=== PATIENT | female | born 1975 | race Caucasian/White ===

== ENCOUNTER 2019-07-26 22:48 | Emergency (ER) | payer SELFPAY ==
[~2019-07-26] VITALS: Ht 165.1 cm; Wt 86.2 kg
--- NOTE | 2019-07-26 22:55 | NUR ---
PT RECEIVED AMBULATORY FRM HOME, C/O L UNDER ARM PAIN AND ABCESS FOR 2WEEKS. HAS TRIED EPSOM SALT SOAK TO THE SITE FROM 5CM DOWN TO 3CM. PT NAD, DENIES FEVERS AND CHILLS, AT BEDSIDE FOR HX AND PHYSICAL
[2019-07-26] MEDS ORDERED: HYDROCODONE/APAP 10-325 MG TABLET PO ONE (23:15)
--- NOTE | 2019-07-26 23:20 | NUR ---
PT ON SUPINE, DRAPED AND PREPPED I&D OF ABSCESS ON L UNDERARM DONE BY JUANY ROGERS, 1%LIDOCAINE USED FOR NUMBING SITE, WITH ASEPSIS AND STERILE TECHNIQUE ABLE TO DRAIN PUS FROM THE SITE APPROX 20-30ML IODOFORM STRIPS PACKED APPROX 24IN, COVERED WITH 4IN GAUZE AND COVERED WITH SOFT TAPE PT ABLE TO TOLERATE PROCEDURE PT NAD, SIDERAILS X2 UP, KEPT WARM DRY AND COMFORTABLE PAIN 8/10 +TENDERNESS TO THE SITE
[2019-07-26] MEDS ORDERED: HYDROCODONE/APAP 10-325 MG TABLET ONE (23:22)
--- NOTE | 2019-07-26 23:37 | NUR ---
Patient discharged to home in stable conditon. Written and verbal after care instructions given. Patient verbalizes understanding of instructions. AMBULATORY WITH STABLE GAIT, ALL BELONGINGS WITH PT
[2019-07-26 23:41] VITALS: BP 130/80
== END 2019-07-26 23:40 | disposition home or self-care (01) ==
LOC: ER 22:48
DX: L02.412 Cutaneous abscess of left axilla (principal)
CPT/HCPCS: A4663

== ENCOUNTER 2019-07-29 13:17 | Emergency (ER) | payer SELFPAY ==
[~2019-07-29] VITALS: Ht 165.1 cm; Wt 86.2 kg
[2019-07-29] MEDS ORDERED: ONDANSETRON 4 MG/2 ML VIAL ONE (13:41)
[2019-07-29] MEDS ORDERED: MORPHINE SULFATE 4 MG/1 ML DISP.SYRIN ONE (13:41)
[2019-07-29] MEDS ORDERED: MORPHINE SULFATE 4 MG/1 ML DISP.SYRIN IM ONE (13:45)
[2019-07-29] MEDS ORDERED: ONDANSETRON 4 MG/2 ML VIAL IM ONE (13:45)
--- NOTE | 2019-07-29 14:17 | NUR ---
Patient discharged to home in stable conditon. Written and verbal after care instructions given. Patient verbalizes understanding of instructions.PT WALKS IN STEADY GAIT. PT ACCOMPANIED BY [facility] MEMBER.
== END 2019-07-29 14:19 | disposition home or self-care (01) ==
LOC: ER 13:17
DX: Z48.01 Encounter for change or removal of surgical wound dressing (principal)
CPT/HCPCS: 96372 ×2; 99283; J2270; J2405; A4663